=== PATIENT | female | born 1955 | race Caucasian/White ===

== ENCOUNTER 2019-12-24 11:28 | Emergency (ER) | payer MEDICARE, OTHER ==
[2019-12-24 12:24] LABS: Bilirubin Negative (Negative); Blood, Urine 2+ (Negative); Clarity Turbid (Clear); Glucose, Urine (Dipstick) Normal (Negative); Leukocyte 500 Leu/uL (Negative); Nitrite Negative (Negative); Protein, Urine (Dipstick) 10 mg/dL (Neg-Trace); Squamous Epithelial 0-3 HPF (0-3); Urobilinogen Normal mg/dL (Less than 2); WBC/HPF Greater than 50 HPF (0-3)
[2019-12-24 12:32] LABS: Bacteria/HPF None Seen HPF (None Seen)
== END 2019-12-24 12:53 | disposition home or self-care (01) ==
LOC: ERS 11:28
DX: N39.0 Urinary tract infection, site not specified (principal); J45.909 Unspecified asthma, uncomplicated
CPT/HCPCS: 81003; 81015; 99283

== ENCOUNTER 2021-09-01 23:51 | Observation (INO) | payer MEDICARE ==
[2021-09-02] MEDS ORDERED: Ondansetron PF 4 MG/2 ML Vial IVP PRN (01:27)
[2021-09-02] MEDS ORDERED: HYDROcodone/Acetaminophen 5/325 mg Tablet PO PRN (01:27)
[2021-09-02] MEDS ORDERED: Senokot S 8.6-50 MG TAB PO PRN (01:27)
[2021-09-02] MEDS ORDERED: Guaifenesin DM 100-10/5 ML UDCUP PO PRN (01:27)
[2021-09-02] MEDS ORDERED: Bisacodyl 5 MG TAB PO PRN (01:27)
[2021-09-02] MEDS ORDERED: Enoxaparin Sodium 40 MG/0.4 ML SYRINGE SC SCH ×2 (01:30→21:00)
[2021-09-02] MEDS ORDERED: hydrALAZINE 20 MG/ML VIAL SLOW IVP PRN (01:38)
[2021-09-02] MEDS ORDERED: methylPREDNISolone Sod Succ/PF 40 MG in Sodium Chloride 0.9% 250 ML 250 ML IVPB SCH (02:00)
[2021-09-02] MEDS ORDERED: Famotidine 20 MG TAB PO SCH ×2 (02:00→21:00)
[2021-09-02] MEDS ORDERED: methylPREDNISolone Sod Succ 40 MG VIAL IVP SCH (02:00)
[2021-09-02 02:07] VITALS: BMI 41.5
[2021-09-02] MEDS: Acetaminophen 325 MG TAB PO PRN ×2 (02:19→14:44)
[2021-09-02] MEDS: Melatonin 3 MG TAB PO PRN ×2 (02:19→20:07)
[2021-09-02] MEDS: Sodium Chloride 0.9% 1,000 ML IV SCH ×2 (03:09→23:28)
[2021-09-02 06:24] LABS: #Monocytes 0.1 thou/uL (0.11-0.59); #Neutrophils 4.1 thou/uL (1.40-6.50); %Basophils 0.6 % (0.0-1.0); %Eosinophils 0.8 % (0.0-10.0); %Lymphocytes 18.8 % (21.0-51.0); %Monocytes 2.6 % (0.0-10.0); %Neutrophils 77.2 % (42.0-75.0); Hemoglobin 13.8 g/dL (12.0-16.0); Mean Corpuscular Hemoglobin 31.7 pg (27.0-31.0); Mean Corpuscular Volume 90.6 fL (78.0-98.0); Platelet Count 149 thou/uL (130-400); RBC Distribution Width 12.1 % (11.5-14.5); Red Blood Cell (RBC) Count 4.36 mill/uL (4.20-5.40); White Blood Cell (WBC) Count 5.4 thou/uL (4.8-10.8)
[2021-09-02 06:30] LABS: Hemoglobin A1c 5.5 % (4.0-6.0)
[2021-09-02 06:49] LABS: Troponin I 0.017 ng/mL (< 0.028)
[2021-09-02 06:55] LABS: ALT (SGPT) 58 U/L (8-55); AST (SGOT) 46 U/L (5-34); Albumin 3.9 g/dL (3.4-4.8); Alkaline Phosphatase 108 U/L (40-110); Anion Gap 13 mmol/L (10-20); BUN (Urea Nitrogen) 18 mg/dL (9.8-20.1); Bilirubin, Total 0.5 mg/dL (0.2-1.2); Calc. Creatinine Clearance 114 mL/min (70-130); Calcium 9.2 mg/dL (7.8-10.44); Carbon Dioxide 25 mmol/L (23-31); Cardiac Risk 4.2 (Less than 4.5); Chloride 105 mmol/L (98-107); Cholesterol 206 mg/dl (< 200 Desired); Glucose 141 mg/dL (80-115); HDL Cholesterol 49 mg/dL (>60 Neg Risk); LDL Cholesterol, Calculated 139 mg/dL; Potassium 4.6 mmol/L (3.5-5.1); Protein, Total 6.9 g/dL (5.8-8.1); Sodium 138 mmol/L (136-145); Triglycerides 91 mg/dL (Less than 150)
[2021-09-02] MEDS: methylPREDNISolone Sod Succ 40 MG VIAL IVP SCH ×3 (08:26→20:08)
[2021-09-02] MEDS: Mometasone 200 MCG/Formoterol 5 MCG 120 PUFF INHALER INH SCH (18:26)
[2021-09-02] MEDS ORDERED: Montelukast Sodium 10 mg Tablet PO SCH (21:00)
[2021-09-03] MEDS: methylPREDNISolone Sod Succ 40 MG VIAL IVP SCH ×2 (02:19→07:59)
[2021-09-03] MEDS: Mometasone 200 MCG/Formoterol 5 MCG 120 PUFF INHALER INH SCH (06:57)
[2021-09-03 11:51] VITALS: BP 181/82; TEMP 97.6
== END 2021-09-03 12:35 | disposition home or self-care (01) ==
LOC: 2SW 09-02 01:25
PROVIDERS: ADMIT Internal Medicine; ATTEND Family Medicine
DX: J45.51 Severe persistent asthma with (acute) exacerbation (principal); J96.21 Acute and chronic respiratory failure with hypoxia; N17.9 Acute kidney failure, unspecified; R74.01 Elevation of levels of liver transaminase levels; I08.1 Rheumatic disorders of both mitral and tricuspid valves; R73.9 Hyperglycemia, unspecified; R74.8 Abnormal levels of other serum enzymes; Z79.899 Other long term (current) drug therapy; Z79.51 Long term (current) use of inhaled steroids; Z87.891 Personal history of nicotine dependence; Z99.81 Dependence on supplemental oxygen; Z91.012 Allergy to eggs
CPT/HCPCS: 80053; 80061; 83036; 84484 ×2; 85025; 93005; 93306; 94640 ×5; 96372; 96374; 96375; 96376; G0378 ×2; 36415; 93010; J0360; J1650; J2920; J7050; J7620

== ENCOUNTER 2024-05-05 12:10 | Outpatient (CLI) | payer MEDICARE | END 2024-05-05 12:11 | disposition home or self-care (01) | LOC: CT 12:10 | PROVIDERS: ATTEND Physician Assistant Medical | DX: R16.2 Hepatomegaly with splenomegaly, not elsewhere classified (principal); R77.2 Abnormality of alphafetoprotein; K74.60 Unspecified cirrhosis of liver; R18.8 Other ascites; K63.89 Other specified diseases of intestine; Z86.19 Personal history of other infectious and parasitic diseases | CPT/HCPCS: 74160; 82565 ==